=== PATIENT | female | born 1965 | race Caucasian/White ===

== ENCOUNTER → 2021-03-31 | Outpatient (CLI) | payer MEDICARE, OTHER ==
[~2021-03-31] MED LIST: ZOFRAN4 MG PO
== END ==
LOC: KOH-I 09:21
DX: M62.838 Other muscle spasm (principal); M47.812 Spondylosis without myelopathy or radiculopathy, cervical region; M19.012 Primary osteoarthritis, left shoulder
CPT/HCPCS: 71046; 72070; 73030